=== PATIENT | female | born 1980 | race Caucasian/White ===

== ENCOUNTER 2022-05-02 09:34 | Outpatient (CLI) | payer OTHER, SELFPAY ==
[2022-05-02 13:50] LABS: Cholesterol* 207 mg/dL (90-199); HDL Cholesterol* 48 mg/dL (>=50); LDL Cholesterol Calculated 114 mg/dL (<100); Triglycerides* 226 mg/dL (40-149)
== END 2022-05-02 09:35 | disposition home or self-care (01) ==
LOC: LONREF 09:35
PROVIDERS: PCP Internal Medicine; Visit Provider Obstetrics & Gynecology
DX: Z01.419 Encounter for gynecological examination (general) (routine) without abnormal findings (principal); Z13.6 Encounter for screening for cardiovascular disorders
CPT/HCPCS: 80061

== ENCOUNTER 2022-07-11 09:01 | Outpatient (CLI) | payer OTHER, SELFPAY ==
--- NOTE | 2022-07-11 09:15 | CRLHL7_ITS ---
For Patients: As a result of the Century Cures Act, medical imaging exams and procedure reports are released immediately into your electronic medical record. You may view this report before your referring provider. If you have questions, please contact your health care provider. BILATERAL SCREENING MAMMOGRAM WITH COMPUTER-AIDED DETECTION TECHNIQUE: CC and MLO views were obtained. These mammographic images have been obtained using full-field digital technique. These mammographic images were interpreted with the benefit of computer-aided detection. COMPARISON FILM: Baseline. FINDINGS: The breasts are heterogeneously dense, which may obscure small masses IMPRESSION: There is no radiographic evidence for malignancy. ASSESSMENT: BI-RADS Category 1: Negative RECOMMENDATION: Routine screening mammogram in 1 year. A lay language report of this examination will be provided to the patient. Marcelle Rasmussen M.D. Diagnostic/Breast Radiologist [email or web address] SUKHJINDER/Dictated by: Marcelle Rasmussen MD @ 07/11/2022 9:34:00 AM (Electronically Signed)
== END 2022-07-11 09:02 | disposition home or self-care (01) ==
LOC: MAMMO 09:02
PROVIDERS: PCP Internal Medicine; Visit Provider Obstetrics & Gynecology
DX: Z12.31 Encounter for screening mammogram for malignant neoplasm of breast (principal); R92.2 Inconclusive mammogram
CPT/HCPCS: 77067

== ENCOUNTER 2022-08-25 16:58 | Emergency (ER) | payer OTHER, SELFPAY ==
[2022-08-25 17:20] VITALS: BP 117/84; PULSE 81; RESP 18; TEMP 36.2; O2SAT 97; BMI 27.9
--- NOTE | 2022-08-25 20:17 | ED.EAR ---
HPI - Ear Problem General Time Seen by Provider: 20:17 Date Seen: 08/25/22 Chief complaint: Ear/Nose/Throat Problem Stated complaint: R ear infection Time Seen by Provider: 08/25/22 20:17 Source: patient, RN notes reviewed and old records reviewed Mode of arrival: ambulatory Limitations: no limitations History of Present Illness HPI Narrative: Clifford is a very pleasant 42-year-old female previously healthy who comes to the emergency room with ear pain. Patient notes that her ear was plugged yesterday and she could not clear it and then overnight started experiencing increasing ear pain. It is uncomfortable when she moves the pinna of her ear. She has not noticed any drainage. She has not recently been ill with any cough cold or congestion. Related Data Home Medications Medication Instructions Recorded Confirmed multivitamin (Multiple Vitamins 1 tab PO QDAY 02/07/22 05/02/22 tablet) Previous Rx's Medication Instructions Recorded fluconazole 150 mg tablet 150 mg PO Q3D 2 doses #2 tabs 05/02/22 triamcinolone acetonide 0.1 % 1 applic topical QDAY PRN eczema 05/02/22 topical ointment #15 grams amoxicillin 500 mg capsule 500 mg PO Q8H #20 caps 08/25/22 fluconazole 150 mg tablet 150 mg PO ONCE PRN #2 tabs 08/25/22 vebdfopj-fhqgbhosk-hxmpwwbwf 3.5 4 drp Otic (ear-right) Q6H 7 days 08/25/22 mg-10,000 unit/mL-1 % ear #10 mL drops,susp Allergies Allergy/AdvReac Type Severity Reaction Status Date / Time No Known Drug Allergies Allergy Verified 05/02/22 09:02 Review of Systems Status of ROS: Reports: 6 or more systems reviewed and unremarkable except as noted in History and below Const: Denies: fever or chills ENMT: Denies: throat pain Cardio: Denies: shortness of breath with exertion Resp: Denies: shortness of breath or cough PFSH PFSH Medical History History of depression ?Z86.59 - Personal history of other mental and behavioral disorders (ICD-10) Right knee pain (2020) ?M25.561 - Pain in right knee (ICD-10) Eczema ?L30.9 - Dermatitis, unspecified (ICD-10) Surgical History History of umbilical hernia repair (10/17/16) ?Z98.890 - Other specified postprocedural states (ICD-10) ?Z87.19 - Personal history of other diseases of the digestive system (ICD-10) Calculus of kidney (2000) ?N20.0 - Calculus of kidney (ICD-10) Family History Father High cholesterol High blood pressure Sister Stroke High cholesterol High blood pressure Social History Narrative: , 6 children, working at [employer] and studying [employer] 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 Highest level of school completed/degree received: some college, no degree Smoking Status: Never smoker How often do you have a drink containing alcohol: never AUDIT-C Alcohol total score: 0 Non-prescribed substance use: denies use Are you now , , , , never or living with a partner: Social isolation score (0-1 are the most socially isolated patients): 1 Little interest or pleasure in doing things: not at all Feeling down, depressed, or hopeless: not at all Do you think of yourself as: straight/heterosexual Gender Identity: female Are you currently sexually active: Yes In the past 12 months, how many sex partners have you had: one Are you using contraception or practicing any form of control: Yes (Natural Family Planning) Exam Narrative: Exam Narrative: Patient is alert and oriented. Very pleasant woman in no acute distress. Eyes are clear. Neck is supple. Examination of the right ear shows erythema starting along the superior ventral ear canal. Tenderness noted with the pinna. There is mild erythema of the TM and it is dull. No respiratory distress. Lungs are clear. Const: Vital Signs, click to edit/add: Vital Signs - 24 hr 08/25/22 17:20 Temperature 97.2 F L Pulse Rate [Right Pulse Oximeter] 81 Respiratory Rate 18 Blood Pressure [Ri ght Upper Arm] 117/84 Pulse Oximetry 97 Oxygen Delivery Me thod Room Air Documenting provider has reviewed patient's vital signs: yes Course Vital Signs Vital signs: Initial Vital Signs Temperature 97.2 F L 08/25/22 17:20 Temperature Source Temporal Artery Scan 08/25/22 17:20 Pulse Rate 81 08/25/22 17:20 Respiratory Rate 18 08/25/22 17:20 Blood Pressure 117/84 08/25/22 17:20 Blood Pressure Mean 95 08/25/22 17:20 Blood Pressure Position Sitting 08/25/22 17:20 Pulse Oximetry 97 08/25/22 17:20 Oxygen Delivery Method Room Air 08/25/22 17:20 Vital Signs Temperature 97.2 F L 08/25/22 17:20 Pulse Rate 81 08/25/22 17:20 Respiratory Rate 18 08/25/22 17:20 Blood Pressure 117/84 08/25/22 17:20 Pulse Oximetry 97 08/25/22 17:20 Oxygen Delivery Method Room Air 08/25/22 17:20 Temperature 97.2 F L 08/25/22 17:20 Pulse Rate 81 08/25/22 17:20 Respiratory Rate 18 08/25/22 17:20 Blood Pressure 117/84 08/25/22 17:20 Pulse Oximetry 97 08/25/22 17:20 Oxygen Delivery Method Room Air 08/25/22 17:20 Medical Decision Making MDM Narrative Medical decision making narrative: 1. Otitis externa 2. Early otitis media 3. Disposition-at this time will treat with both oral antibiotic amoxicillin 500 mg p.o. t.i.d. times to 7 days as well as drops Cortisporin 4 drops to the right ear t.i.d. times 7 days Patient will return to the ER for fever, drainage, worsening pain and as needed. Medical Records Medical records reviewed: Yes I reviewed the patient's medical records Discharge Plan Discharge Clinical Impression: Otitis externa Qualifiers: Otitis externa type: unspecified type Laterality: right Patient Disposition: Home, Self-Care Condition: Unchanged Additional Instructions: Antibiotic drops and oral antibiotic as directed. I will also call in Diflucan in the event that you get a yeast infection. Return to the emergency room for fever, increasing discharge, worsening pain. Prescriptions: New fluconazole 150 mg tablet 150 mg PO ONCE PRNQty: 2 0RF bvonalxg-diszvnvpc-RB 3.5-10,000-1 mg/mL-unit/mL-% drops,suspension 4 drp Otic (ear-right) Q6H 7 Days Qty: 10 0RF amoxicillin 500 mg capsule 500 mg PO Q8H Qty: 20 0RF No Action multivitamin [Multiple Vitamins] Tablet 1 tab PO QDAY triamcinolone acetonide 0.1 % ointment 1 applic topical QDAY PRN (Reason: eczema) Qty: 15 2RF fluconazole 150 mg tablet 150 mg PO Q3D Qty: 2 2RF Rx Instructions: may repeat second dose 72 hrs after first dose if symptoms persist Follow Up/Referrals: Elzbieta Madrid MD [Primary Care Provider] - Stand Alone Forms: [employer] Info Instructions
[2022-08-25 20:37] VITALS: BP 112/74; PULSE 79; RESP 18; TEMP 36.7; O2SAT 97
[2022-08-25 21:09] VITALS: BP 112/74; PULSE 79; RESP 18; TEMP 36.7
== END 2022-08-25 20:37 | disposition home or self-care (01) ==
LOC: ED 20:37
PROVIDERS: Emergency Provider Family Medicine; PCP Internal Medicine
DX: H60.91 Unspecified otitis externa, right ear (principal)
CPT/HCPCS: 99283

== ENCOUNTER 2023-01-20 16:19 | Outpatient (CLI) | payer OTHER, SELFPAY ==
[2023-01-20 16:46] LABS: Strep A DNA Probe* NOT DETECTED (Not Detectd)
== END 2023-01-20 16:20 | disposition home or self-care (01) ==
LOC: NFLDUCREF 16:19
PROVIDERS: PCP Internal Medicine; Visit Provider Physician Assistant
DX: R07.0 Pain in throat (principal)
CPT/HCPCS: 87651

== ENCOUNTER 2023-09-01 12:53 | Outpatient (CLI) | payer OTHER, SELFPAY ==
--- NOTE | 2023-09-01 13:20 | MM_ITS ---
Patient: INGA NICHOLSON Facility:?[facility] Patient ID:?[id number] Site Patient ID:?[id number]. Site :?[id number] Study:?XRay-Breast Bilateral 3D W/CAD-09/01/2023 1:20:46 PM Ordering Physician:Wilton Final Report: BILATERAL SCREENING MAMMOGRAM WITH COMPUTER-AIDED DETECTION AND TOMOSYNTHESIS TECHNIQUE: CC and MLO views were obtained. These mammographic images have been obtained using full-field digital technique. These mammographic images were interpreted with the benefit of computer-aided detection. Breast Tomosynthesis was used in this interpretation. COMPARISON FILM: 07/11/22. FINDINGS: The breasts are heterogeneously dense, which may obscure small masses. IMPRESSION: There is no radiographic evidence for malignancy. ASSESSMENT: BI-RADS Category 1: Negative RECOMMENDATION: Routine screening mammogram in 1 year. A lay language report of this examination will be provided to the patient. Vaughn De Jesus M.D. Diagnostic Radiologist [email or web address] DSM/sp R& Transcribed: 6:41 p.m. SP/Dictated by: Vaughn De Jesus MD @ 09/04/2023 11:08:00 AM Signed by:?Vaughn De Jesus MD @09/04/2023 8:47:29 PM (Electronic Signature)
== END 2023-09-01 12:54 | disposition home or self-care (01) ==
LOC: MAMMO 12:53
PROVIDERS: PCP Internal Medicine; Visit Provider Obstetrics & Gynecology
DX: Z12.31 Encounter for screening mammogram for malignant neoplasm of breast (principal); R92.2 Inconclusive mammogram
CPT/HCPCS: 77063; 77067

== ENCOUNTER 2023-09-27 08:22 | Outpatient (CLI) | payer OTHER, SELFPAY | END 2023-09-27 08:23 | disposition home or self-care (01) | LOC: NFLDREF 08:23 | PROVIDERS: PCP Internal Medicine; Visit Provider Obstetrics & Gynecology | DX: R39.9 Unspecified symptoms and signs involving the genitourinary system (principal) | CPT/HCPCS: 87086 ==

== ENCOUNTER 2024-10-14 10:10 | Outpatient (CLI) | payer OTHER, SELFPAY | END 2024-10-14 10:11 | disposition home or self-care (01) | LOC: NFLDREF 10:11 | PROVIDERS: PCP Internal Medicine; Visit Provider Obstetrics & Gynecology | DX: N92.0 Excessive and frequent menstruation with regular cycle (principal); Z13.6 Encounter for screening for cardiovascular disorders | CPT/HCPCS: 80061 ==

== ENCOUNTER 2024-10-24 09:00 | Outpatient (CLI) | payer OTHER, SELFPAY ==
--- NOTE | 2024-10-24 09:15 | CRLHL7_ITS ---
For Patients: As a result of the Century Cures Act, medical imaging exams and procedure reports are released immediately into your electronic medical record. You may view this report before your referring provider. If you have questions, please contact your health care provider. INDICATION: Excessive and Frequent Menstruation COMPARISON: None. TECHNIQUE: 2D valles-scale and color Doppler images were acquired of the pelvis using a transabdominal and transvaginal approach. Transvaginal imaging performed to better visualize the endometrial stripe and ovaries. FINDINGS: Anterior fundal intramural fibroid measures 2.2 x 2.4 x 2.3 cm. Posterior submucosal fibroid measures 3.1 x 2.9 x 2.8 cm. Incidental cervical nabothian cyst measures 1.3 x 0.9 x 1.1 cm. Uterus measures 12.3 cm in length by 6.7 cm in AP diameter by 8.0 cm in transverse dimension. The endometrial lining measures 5 mm in composite thickness. The right ovary measures 2.4 x 1.4 x 1.6 cm in size and the left ovary measures 3.2 x 1.3 x 2.0 cm. The ovaries demonstrate normal arterial and venous blood flow on color Doppler analysis. There are no suspicious fluid collections within the cul-de-sac. Simple circumscribed right adnexal cyst measures 2.3 x 1.4 x 2.4 cm. IMPRESSION: Submucosal posterior fibroid measures 3.1 x 2.9 x 2.8 cm. Endometrial thickness 5 millimeters. Dictated by Vaughn De Jesus MD @ 10/24/2024 10:01:47 AM (Electronically Signed)
== END 2024-10-24 09:01 | disposition home or self-care (01) ==
LOC: US 09:00
PROVIDERS: PCP Internal Medicine; Visit Provider Obstetrics & Gynecology
DX: N92.0 Excessive and frequent menstruation with regular cycle (principal); D25.0 Submucous leiomyoma of uterus; R93.89 Abnormal findings on diagnostic imaging of other specified body structures
CPT/HCPCS: 76830; 76856

== ENCOUNTER 2024-10-28 13:07 | Outpatient (CLI) | payer OTHER, SELFPAY ==
--- NOTE | 2024-10-28 13:20 | CRLHL7_ITS ---
For Patients: As a result of the Century Cures Act, medical imaging exams and procedure reports are released immediately into your electronic medical record. You may view this report before your referring provider. If you have questions, please contact your health care provider. INDICATION: BILATERAL SCREENING MAMMOGRAM, ASYMPTOMATIC 44 Y/O FEMALE COMPARISON: 09/01/2023, 07/11/2022 TECHNIQUE: Digital mammogram in CC and MLO projections including computer-aided detection (CAD) and tomosynthesis. BREAST COMPOSITION: The breasts are heterogeneously dense, which may obscure small masses. FINDINGS: No suspicious findings. ASSESSMENT: BI-RADS 1 Negative RECOMMENDATION: Annual screening mammogram. A lay language report of this examination will be provided to the patient. Dictated by: Vaughn De Jesus MD @ 10/29/2024 11:36:40 (Electronically Signed)
== END 2024-10-28 13:08 | disposition home or self-care (01) ==
LOC: MAMMO 13:07
PROVIDERS: PCP Internal Medicine; Visit Provider Obstetrics & Gynecology
DX: Z12.31 Encounter for screening mammogram for malignant neoplasm of breast (principal); R92.333 Mammographic heterogeneous density, bilateral breasts
CPT/HCPCS: 77063; 77067